=== PATIENT | female | born 1965 | race Caucasian/White ===

== ENCOUNTER 2016-08-29 16:57 | Emergency (ER) | payer OTHER ==
[~2016-08-29] VITALS: Ht 162.6 cm; Wt 68.2 kg
[2016-08-29 16:59] VITALS: BP 175/88; PULSE 66; RESP 14; O2SAT 97
--- NOTE | 2016-08-29 17:10 | ED.REPORT ---
HPI-Chest Pain 40 and Over Date of Service Aug 29, 2016 ED Provider: Shimon Iglesias MD Pt reports to ER w/ a hx of HTN complaining of chest pain that began an hour ago. Pt reports that it felt like "she had swallowed something." Pain is rated at 3/10 in severity and at its worst 7/10. Pain radiates into upper back , does not affect her breathing, and does not increase with exertion. Pt denies diaphoresis, nausea, palpitations, edema, SOB, heart burn, abdominal pain. Pt says she has never experienced pain like this before and has not taken any medication for the pain. Pt is currently on Losartan for HTN and had pleurisy in lungs 4 years ago Pt's grandfather from major heart attack. Nursing Notes Stated Complaint: CHEST PAIN Chief Complaint: Chest Pain Nursing Notes Reviewed: Yes ([employer] not reconciled) Allergies: Coded Allergies: Penicillins (Verified Allergy, Intermediate, 08/29/16) General Time Seen by MD: 17:09 Chief Complaint Chest pain Hx Obtained From: Patient Arrived By: Walk-in Sudden in Onset?: Yes Onset Occurred: 1 - 4 hours ago Symptom Duration: Since onset Radiation: : Back Severity: Current: Mild Severity: Maximum: Moderate Recent Healthcare: No recent doctor visit, No recent hospitalization Similar Sx Previous: No Past Medical History Past Medical History pleurisy 4 years ago Reports: Hypertension, Denies: Coronary artery disease, Diabetes mellitus Past Surgical History none reported Family History Grandfather from heart attack Reports: Coronary artery disease, Stroke Smoking History Never Smoker Social History Other Social History: Good social support, Local resident Ambulatory Status Independent Review of Systems Review of Systems Note: denies heartburn Respiratory: Denies: Shortness of breath Cardiovascular: Reports: Chest pain, Denies: Edema, Palpitations GI: Denies: Abdominal pain, Nausea, Vomiting Musculoskeletal: Denies: Extremity pain, Extremity swelling Skin: Denies Diaphoresis Complete sys rev & neg: except as marked. Physical Exam Initial Vital Signs Vital Signs (First) Date Time Temp Pulse Resp B/P Pulse Ox O2 Delivery O2 Flow Rate FiO2 08/29/16 16:59 36.4 66 14 175/88 97 Room Air Initial VS: Reviewed, Vital signs abnormal (HTN) Head / Eyes: Atraumatic, Normocephalic, PERRL ENT: Mucous membranes moist, Conjunctiva normal, No scleral icterus Neck: Supple, Non-tender, Full range of motion Extremities: Vascular intact, Neuro intact, No swelling, No tenderness Skin: Warm, Dry, No cyanosis Neurologic: Alert, Oriented, Nonfocal Psychiatric: Mood/affect normal, Behavior normal, Normal thought content General/Constitutional: Awake, Alert, No acute distress, Well appearing, Well developed Respiratory / Chest: Atraumatic, Breath sounds NL, Breath sounds = bilat, No respiratory distress Cardiovascular: Heart rate NL, Regular rhythm, Heart sounds NL, No gallop, No murmurs, No rubs Abdomen: Atraumatic, Soft, Non-tender, No guarding, No rebound Interpretation & Diagnostics Lab Results Interpretation Result Diagram: 08/29/16 1706 08/29/16 1706 Test 08/29/16 17:06 08/29/16 18:04 White Blood Count 6.1th/mm3 (3.8-10.1) Red Blood Count 4.95mil/mm3 (3.90-5.20) Hemoglobin 15.1g/dL (12.0-15.6) Hematocrit 43.9% (35.0-46.0) Mean Corpuscular Volume 88.7fL (81-100) Mean Corpuscular Hemoglobin 30.5pg (27.0-35.0) Mean Corpuscular Hemoglobin Concent 34.4% (32.0-37.0) Red Cell Distribution Width 13.0% (12.3-15.4) Platelet Count 241bil/L (150-400) Neutrophils (%) (Auto) 43.0% (40-74) Lymphocytes (%) (Auto) 42.7% (14-46) Monocytes (%) (Auto) 11.3% (4-12) Eosinophils (%) (Auto) 2.3% (0-5) Basophils (%) (Auto) 0.5% (0-3) Sodium Level 140mEq/L (134-144) Potassium Level 4.1mEq/L (3.5-5.2) Chloride Level 102mEq/L (97-108) Carbon Dioxide Level 26mmol/L (18-29) Blood Urea Nitrogen 19mg/dL (6-24) Creatinine 0.61mg/dL (0.57-1.00) Estimat Glomerular Filtration Rate 147mL/min (>59) Glucose Level 112mg/dL (60-99) Calcium Level 9.2mg/dL (8.5-10.1) Magnesium Level 2.1mg/dL (1.6-2.6) Total Bilirubin 0.2mg/dL (0.0-1.2) Aspartate Amino Transf (AST/SGOT) 31U/L (0-50) Alanine Aminotransferase (ALT/SGPT) 63U/L (0-32) Alkaline Phosphatase 111U/L (25-150) Total Protein 6.7g/dL (6.4-8.4) Albumin 4.0g/dL (3.4-5.0) Hold Fu Top Tube Received (Received) Troponin T < 0.010ug/L (0.0-0.011) Lab Results Interpretation: CBC normal CMP normal Troponin 2 negative ECG Interpretation Time: 19:01 Interpreted by: ED physician Normal ECG Interpretation: Normal ECG w/ rate of... (rate 64), No acute ischemic changes X-Ray Chest Interpretation Chest Xray Interpretation: IMPRESSION: No acute cardiopulmonary disease process. Dictated by: Vicki Kamara MD, PhD on 08/29/2016 at 17:37 Approved by: Vicki Kamara MD, PhD on 08/29/2016 at 17:37 View: Portable Interpretation / Wet Read by: Interpret - Radiologist Re-Eval/Medical Decision Med Decision/Clinical Course This is a 51-year-old female who developed a discomfort in the center of her chest while driving, describes as, ball in her esophagus and chest. There is no radiation, no shortness of breath, symptoms or easing off. There is no exertional component-the patient reports she is walking a miles a day with no difficulty shortness of breath or worse exertional symptoms. She came in to get checked out. No prior history of coronary disease. She has risk factor of hypertension she reports is well-controlled with her losartan. She was hypertensive at initial arrival, but this resolved without intervention to normal blood pressure 125 systolic. He has a normal clinical exam. Her EKG is normal. X-rays normal. Blood work included 2 sets of troponins are negative. The patient's low heart score is low risk for a cardiac event, is a reasonable candidate for prolonged observation serial enzymes for discharge to home. Chief precautions reviewed. Patient is discharged in good condition with follow -up with PCP. Source of Hx: Old records Time of Eval: 18:57 Patient Status: Condition improved Re-Evaluation/Progress Note: Pt rechecked. Informed pt of diagnosis and plan for treatment. Pt understands and agrees with plan. F/U and RTER warnings given. All questions addressed. Differential Diagnosis: Positive: Chest pain, acute, Negative: Acute coronary syndrome, Acute myocardial infarct, Cholecystitis, Congestive heart failure, Dysrhythmia, Esophageal rupture, Gun shot wound chest , Myocardial infarction, Pleurisy, Pneumomediastinum, Pneumonia, Pneumothorax, Pulmonary edema, Pulmonary embolism, Stab wound chest Counseled Regarding: Diagnosis, Lab results, Need for follow-up, When/why to return to ED Discharge & Departure Primary Impression: Chest pain Chest pain type: unspecified Qualified Code: R07.9 - Chest pain, unspecified Disposition: Home Discharge Condition All VS Reviewed: Yes Condition: Stable Additional Instructions: 1. A dangerous cause of the chest pain was not identified. 2. Your tests and emergency department were normal-this included an EKG, 2 sets of cardiac biomarker (troponins). Your Xray was normal. 3. Activities as tolerated 4. She develop new or worsening symptoms-shortness of breath, diaphoresis, exertional symptoms, you should be seen and rechecked Referrals: Mansoor Keith MD (Family) Scribe Attestation Portion of this note were transcribed by Lyssa Aviles and Angelia Connolly. I, Dr. Ford, personally performed the history, physcial exam, and medical decision- making: I reviewed and confirmed the accuracy for the information in the transcribed note. Signed by: elizabeth Pearson, 08/29/161957 Signed by: Elizabeth Garcia, 08/29/20161999 copies to: Mansoor Keith MD, Matthew F MD Aug 29, 2016 17:10 ANGELIA CONNOLLY Aug 29, 2016 17:23 Lyssa Aviles Aug 29, 2016 20:00
[2016-08-29 17:36] LABS: BASOPHILS % (AUTO) 0.5 % (0-3); EOSINOPHILS % (AUTO) 2.3 % (0-5); MONOCYTES % (AUTO) 11.3 % (4-12); Mean Corpuscular Hemoglobin 30.5 pg (27.0-35.0); Mean Corpuscular Volume 88.7 fL (81-100); Platelet Count 241 bil/L (150-400)
--- NOTE | 2016-08-29 17:38 | DRSVH ---
PROCEDURE: X-RAY CHEST ONE VIEW, PORTABLE ([id number]) INDICATIONS: CHEST PAIN TECHNIQUE: One view of the chest was acquired. COMPARISON: [facility], RG, CHEST 1VW (PORTABLE) , 03/31/2006, 11:26. FINDINGS: Surgical changes and devices: None. Lungs and pleura: No pleural effusions or pneumothorax. Lungs are clear. Mediastinum: Mediastinal contours appear normal. Heart size is normal. Bones and chest wall: No suspicious bony lesions. Overlying soft tissues appear unremarkable. IMPRESSION: No acute cardiopulmonary disease process. Dictated by: Vicki Kamara MD, PhD on 08/29/2016 at 17:37 Approved by: Vicki Kamara MD, PhD on 08/29/2016 at 17:37
[2016-08-29 17:42] LABS: TROPONIN T < 0.010 ug/L (0.0-0.011)
[2016-08-29 17:50] LABS: Magnesium 2.1 mg/dL (1.6-2.6)
[2016-08-29 18:06] VITALS: BP 126/78
[2016-08-29 19:14] VITALS: BP 129/70; PULSE 61; RESP 13; O2SAT 95
== END 2016-08-29 19:16 | disposition home or self-care (01) ==
LOC: SED 16:57
DX: R07.9 Chest pain, unspecified (principal); I10 Essential (primary) hypertension; Z87.09 Personal history of other diseases of the respiratory system; Z88.0 Allergy status to penicillin